=== PATIENT | female | born 1990 | race Caucasian/White ===

== ENCOUNTER 2017-08-02 12:59 | Emergency (ER) | payer OTHER ==
[2017-08-02] MEDS ORDERED: traMADol HCl 50 MG TAB ONE (13:29)
[2017-08-02] MEDS ORDERED: Tetracaine 0.5% OPHTH SOLN/PF 4 ML BOT ONE (13:29)
== END 2017-08-02 13:45 | disposition home or self-care (01) ==
LOC: MADERS 12:59
DX: H10.9 Unspecified conjunctivitis (principal); F31.9 Bipolar disorder, unspecified; F41.9 Anxiety disorder, unspecified; Z79.899 Other long term (current) drug therapy
CPT/HCPCS: 99282